=== PATIENT | male | born 1945 | race Caucasian/White ===

== ENCOUNTER 2018-09-14 03:27 | Emergency (ER) | payer MEDICARE, OTHER ==
[~2018-09-14] VITALS: Ht 188 cm; Wt 145.1 kg
[2018-09-14] MEDS ORDERED: KETOROLAC TROMETHAMINE 30 MG/ML VIAL IV STA (03:49)
[2018-09-14] MEDS ORDERED: KETOROLAC TROMETHAMINE 30 MG/ML VIAL ONE (03:53)
--- NOTE | 2018-09-14 04:46 | Diagnostic Imaging Report ---
EXAM: CT Abdomen and Pelvis WITHOUT contrast INDICATION: ^[id number] ^0401 COMPARISON: None. TECHNIQUE: Abdomen and pelvis were scanned utilizing a multidetector helical scanner from the lung base to the pubic symphysis without administration of IV contrast. Absence of intravenous contrast decreases sensitivity for detection of focal lesions and vascular pathology. Coronal and sagittal reformations were obtained. Routine protocol was performed. IV CONTRAST: None ORAL CONTRAST: Water COMPLICATIONS: None RADIATION DOSE: Total DLP: 878.97 mGy*cm Estimated effective dose: (DLP x 0.015 x size factor) mSv CTDIvol has been reviewed. It is below the limits set by the Radiation Protocol Committee (RPC). FINDINGS: LINES and TUBES: None. LOWER THORAX: Partially seen atherosclerotic calcification of coronary arteries. HEPATOBILIARY: Unenhanced liver is unremarkable. No biliary ductal dilation. GALLBLADDER: No radio-opaque stones or sludge. No wall thickening. SPLEEN: No splenomegaly. PANCREAS: No focal masses or ductal dilatation. ADRENALS: No adrenal nodules KIDNEYS/URETERS: No hydronephrosis. Limited for evaluation of renal parenchyma without intravenous contrast. Bilateral perinephric fat stranding, left slightly more than right. Left renal inferior pole 6 mm calculus. Exophytic left superior pole 4.1 cm cyst. Cluster of right renal midpole calculi, overall measuring 2.1 cm. From inner left ureterovesical junction calculus without left hydronephrosis. However, there is left periureteral fat stranding. GI TRACT: No abnormal distention, wall thickening, or evidence of bowel obstruction. There are diverticula within the colon without evidence of diverticulitis. Appendix is normal. PELVIC ORGANS/BLADDER: Unremarkable. LYMPH NODES: No lymphadenopathy. VESSELS: There is moderate atherosclerotic disease in the aorta and major arterial branches. Focally ectatic infrarenal abdominal aorta measuring approximately 2.8 cm. PERITONEUM / RETROPERITONEUM: No free air or fluid. BONES: Grade 1 retrolisthesis of L5 in relation to L4. SOFT TISSUES: Unremarkable. IMPRESSION: 1. Bilateral nonobstructive renal calculi. 2. 4 mm left ureterovesical junction calculus without left hydronephrosis. However, there is increased left perinephric and left periureteral fat stranding. Superimposed urinary tract infection cannot be excluded. Signed by: Dr. Fabian Bird MD on 09/14/2018 4:43 AM
[2018-09-14 05:08] VITALS: BP 144/73
== END 2018-09-14 05:15 | disposition home or self-care (01) ==
LOC: FSED 03:27
DX: N20.2 Calculus of kidney with calculus of ureter (principal); Z87.442 Personal history of urinary calculi; I10 Essential (primary) hypertension; E11.9 Type 2 diabetes mellitus without complications; Z90.49 Acquired absence of other specified parts of digestive tract
CPT/HCPCS: 74176; 80053; 80076; 81003; 85025; 99284; J1885

== ENCOUNTER → 2018-12-02 | Day surgery (SDC) | payer OTHER, MEDICARE ==
[2018-12-01 12:30] LABS: BASOPHILS # (AUTO) 0.1 (0.0-0.1); EOSINOPHILS # (AUTO) 0.4 (0.0-0.4); EOSINOPHILS % 5.2 % (0.0-6.0); HEMATOCRIT 40.4 % (38.2-49.6); HEMOGLOBIN 12.8 g/dL (14.0-18.0); LYMPHOCYTES # (AUTO) 1.9 (1.0-3.2); LYMPHOCYTES % 25.1 % (18.0-39.1); MEAN CORPUSCULAR HEMOGLOBIN 27.9 pg (28-32); MEAN CORPUSCULAR HGB CONC 31.7 g/dL (31-35); MEAN CORPUSCULAR VOLUME 88.2 fL (81-99); MONOCYTES # (AUTO) 0.8 (0.2-0.8); MONOCYTES % 10.1 % (4.4-11.3); NEUTROPHILS # (AUTO) 4.5 (2.1-6.9); NEUTROPHILS % 58.3 % (38.7-80.0); PLATELET COUNT 238 x10e3/uL (140-360); RED BLOOD COUNT 4.58 x10e6/uL (4.3-5.7); RED CELL DISTRIBUTION WIDTH 14.5 % (11.7-14.4)
[2018-12-01 13:02] LABS: ANION GAP 12.2 mmol/L (8-16); BLOOD UREA NITROGEN 14 mg/dL (7-26); BUN/CREATININE RATIO 13 (6-25); CALCIUM 10.2 mg/dL (8.4-10.2); CARBON DIOXIDE 29 mmol/L (22-29); CHLORIDE 97 mmol/L (98-107); CREATININE, SERUM 1.04 mg/dL (0.72-1.25); EST GLOMERULAR FILTRATION RATE > 60 ML/MIN (60-); GLUCOSE 195 mg/dL (74-118); POTASSIUM 4.2 mmol/L (3.5-5.1); SODIUM 134 mmol/L (136-145)
--- NOTE | 2018-12-01 13:16 | Diagnostic Imaging Report ---
Exam: PA and lateral chest radiograph Clinical history: Preoperative clearance Findings: There is no evidence of pulmonary consolidation, pleural effusion, or pneumothorax. The cardiac size is within normal limits. Bridging osteophytes are noted throughout the thoracic spine. Otherwise, the regional osseous structures are unremarkable. Impression: 1. No radiographic evidence of acute cardiorespiratory disease. Signed by: Dr. Gopi Mcdaniel MD on 12/01/2018 1:12 PM
--- NOTE | 2018-12-01 15:10 | Diagnostic Imaging Report ---
Exam: KUB Clinical history: Preoperative clearance Comparison: CT abdomen and pelvis, September 14, 2018 Findings: A 2.4 cm calcific density structures seen overlying the upper pole right kidney most compatible with nephrolithiasis. There appears relatively stable compared to the prior study. There is nonobstructive bowel gas pattern. The regional osseous structures are within normal limits. Impression: 1. Right nephrolithiasis. Signed by: Dr. Gopi Mcdaniel MD on 12/01/2018 3:07 PM
[~2018-12-02] MED LIST: ABILIFY5 MG PO; ALTACE5 MG PO; ASPIRIN325 MG PO; B&O 60MG R/S 60 MG SUPP PR ONE; CEFTRIAXONE SOD 1 GM/NS 50 ML 50 ML IV ONE; DEXAMETHASONE SOD PHOS INJ 4 MG/ML VIAL ONE; FENTANYL CITRATE/PF 100MCG/2 ML INJ ONE; GLIMEPIRIDE2 MG PO; IOPAMIDOL 610MG/1ML 300 MG/ML VIAL IV ONE; LIDOCAINE HCL 2% LOCAL INJ 5 ML SDV VIAL INJ ONE; LIPITOR20 MG PO; METFORMIN HCL500 MG PO; METOPROLOL SUCC50 MG PO; MIDAZOLAM HCL 2 MG/2 ML VIAL ONE; ONDANSETRON HCL INJ 2MG/ML 2ML 2 MG/ML VIAL ONE; OXYBUTYNIN CHLOR5 MG PO; PIOGLITAZONE HC45 MG PO; PLAVIX75 MG PO; PRISTIQ ER50 MG PO; PROPOFOL IV EMULSION 10 MG/ML 20 ML VIAL ONE; SEVOFLURANE INHAL SOLN 250 ML PEN BTL ONE; SULFAMETHOXAZO1 EAC1 PO; TRADJENTA5 MG PO; TYLENOL # 31 EA PO
--- OUTSIDE RECORDS SUMMARY | 2018-12-02 10:45 | XMS REPORT ---
Author Author [facility] Address Unknown Phone Unavailable Care Team Providers Care Advice Line Rn Name Role Phone CELESTINO QUINTANILLA Unavailable Unavailable Samy PAGE Unavailable Unavailable Payers Payer Name Policy Type Policy Number Effective Date Expiration Date Problems This patient has no known problems. Allergies, Adverse Reactions, Alerts Allergy Name Allergy Type Status Severity Reaction(s) Onset Date Inactive Date Treating Clinician Comments No Known Allergies DA Active U 2012 00:00:00 Medications This patient has no known medications. Results Test Description Test Time Test Comments Text Results Atomic Results Result Comments ABDOMEN-1VIEW (RICHYB) 2018-12-01 15:05:00 [place] [address] Patient Name: PRIYA GR MR #: [id number] : 1945 Age/Sex: 73/M Req #: [id number] Adm Physician: Ordered by: CELESTINO QUINTANILLA MD Report #: [id number] Location: OR Room/Bed: Procedure: [id number] DX/ABDOMEN-1VIEW (KUB) Exam Date: 12/01/18 Exam Time: 1200 REPORT STATUS: Signed Exam: KUB Clinical history: Preoperative clearance Comparison: CT abdomen and pelvis, September 14, 2018 Findings: A 2.4 cm calcific density structures seen overlying the upper pole right kidney most compatible with nephrolithiasis. There appears relatively stable compared to the prior study. There is nonobstructive bowel gas pattern. The regional osseous structures are within normal limits. Impression: 1. Right nephrolithiasis. Signed by: Dr. Gopi Mcdaniel MD on 12/01/2018 3:07 PM Dictated By: GIL MDCANIEL MD 1507 Transcribed By: MARY ELLEN on 12/01/18 1507 COPY TO: CELESTINO QUINTANILLA MD CHEST 2 VIEWS 2018-12-01 13:11:00 [place] [address] Patient Name: PRIYA GR MR #: [id number] : 1945 Age/Sex: 73/M Req #: [id number] Adm Physician: Ordered by: CELESTINO QUINTANILLA MD Report #: [id number] Location: OR Room/Bed: Procedure: [id number] DX/CHEST 2 VIEWS Exam Date: 12/01/18 Exam Time: 1200 REPORT STATUS: Signed Exam: PA and lateral chest radiograph Clinical history: Preoperative clearance Findings: There is no evidence of pulmonary consolidation, pleural effusion, or pneumothorax. The cardiac size is within normal limits. Bridging osteophytes are noted throughout the thoracic spine. Otherwise, the regional osseous structures are unremarkable. Impression: 1. No radiographic evidence of acute cardiorespiratory disease. Signed by: Dr. Gopi Mcdaniel MD on 12/01/2018 1:12 PM Dictated By: GIL MCDANIEL MD 11 Transcribed By: MARY ELLEN on 12/01/181311 COPY TO: CELESTINO QUINTANILLA MD CT ABD/PEL WO CONTRAST-HOPD 2018-09-14 04:34:00 [facility] [address] [place] [address] Patient Name: PRIYA GR MR #: [id number] : 1945 Age/Sex: 73/M Req #: [id number] Adm Physician: Ordered by: GIULIANA PAGE MD Report #: [id number] Location: [facility] Room/Bed: Procedure: HOPD/CT ABD/PEL WO CONTRAST-HOPD Exam Date: 09/14/18 Exam Time: 400 REPORT STATUS: Signed EXAM: CT Abdomen and Pelvis WITHOUT contrast INDICATION: [id number] COMPARISON: None. TECHNIQUE: Abdomen and pelvis were scanned utilizing a multidetector helical scanner from the lung base to the pubic symphysis without administration of IV contrast. Absence of intravenous contrast decreases sensitivity for detection of focal lesions and vascular pathology. Coronal and sagittal reformations were obtained. Routine protocol was performed. IV CONTRAST: None ORAL CONTRAST: Water COMPLICATIONS: None RADIATION DOSE: Total DLP: 878.97 mGy*cm Estimated effective dose: (DLP x 0.015 x size factor) mSv CTDIvol has been reviewed. It is below the limits set by the Radiation Protocol Committee (RPC). FINDINGS: LINES and TUBES: None. LOWER THORAX: Partially seen atherosclerotic calcification of coronary arteries. HEPATOBILIARY: Unenhanced liver is unremarkable. No biliary ductal dilation. GALLBLADDER: No radio-opaque stones or sludge. No wall thickening. SPLEEN: No splenomegaly. PANCREAS: No focal masses or ductal dilatation. ADRENALS: No adrenal nodules KIDNEYS/URETERS: No hydronephrosis. Limited for evaluation of renal parenchyma without intravenous contrast. Bilateral perinephric fat stranding, left slightly more than right. Left renal inferior pole 6 mm calculus. Exophytic left superior pole 4.1 cm cyst. Cluster of right renal midpole calculi, overall measuring 2.1 cm. From inner left ureterovesical junction calculus without left hydronephrosis. However, there is left periureteral fat stranding. GI TRACT: No abnormal distention, wall thickening, or evidence of bowel obstruction. There are diverticula within the colon without evidence of diverticulitis. Appendix is normal. PELVIC ORGANS/BLADDER: Unremarkable. LYMPH NODES: No lymphadenopathy. VESSELS: There is moderate atherosclerotic disease in the aorta and major arterial branches. Focally ect atic infrarenal abdominal aorta measuring approximately 2.8 cm. PERITONEUM / RETROPERITONEUM: No free air or fluid. BONES: Grade 1 retrolisthesis of L5 in relation to L4. SOFT TISSUES: Unremarkable. IMPRESSION: 1. Bilateral nonobstructive renal calculi. 2. 4 mm left ureterovesical junction calculus without left hydronephrosis. However, there is increased left perinephric and left periureteral fat stranding. Superimposed urinary tract infection cannot be excluded. Signed by: Dr. Fabian Greer MD on 09/14/2018 4:43 AM Dictated By: FABIAN GREER MD 2 Transcribed By: MARY ELLEN on 09/14/18442 COPY TO: GIULIANA PAGE MD
[2018-12-02 15:00] VITALS: BP 141/81
--- NOTE | 2019-01-10 07:56 | Operative Report ---
DATE OF PROCEDURE: 12/02/2018 SURGEON: Preston Goss MD PREOPERATIVE DIAGNOSES: 1. Bilateral nephrolithiasis. 2. Bilateral renal colic, potential. POSTOPERATIVE DIAGNOSES: 1. Bilateral nephrolithiasis. 2. Bilateral renal colic, potential. OPERATION PERFORMED: 1. Cystourethroscopy with bilateral ureteral catheterization and retrograde ureteropyelography. 2. Bilateral ureteroscopy on the left-hand side with stone manipulation on the right-hand side, left ureteroscopy with stone manipulation (separate procedure performed for the left-sided kidney stone). 3. Cystourethroscopy with insertion of left indwelling ureteral stent (separate procedure performed for the diagnosis of the renal colic). 4. Right ureteroscopy with holmium laser lithotripsy, stone manipulation, and insertion of stents (separate procedure performed for the right nephrolithiasis). 5. Urological Services for supervision and interpretation of ureteroscopy. 6. Interpretation of retrograde ureteropyelography. ANESTHESIA: General. COMPLICATIONS: None. CLINICAL SUMMARY: Chaz Kennedy is a 73-year-old man with bilateral nephrolithiasis. He is brought for management. He is aware of the risks of bleeding, infection, injury to adjacent structures, need for additional procedures, and elected to proceed. OPERATIVE PROCEDURE IN DETAIL: Informed consent was verified. Chaz Kennedy was properly identified, taken to the operating room, and placed on the cystoscopy table in supine position. Anesthesia was uneventfully begun. The patient was then carefully and gently repositioned in dorsal lithotomy position with all pressure points well padded. His genitalia were prepared and draped in usual sterile fashion. A 22.5-Faroese cystoscope sheath with the visual obturator in place was atraumatically inserted into the patient's urethra, was guided down the urethra, which was remarkable for wide caliber, not clinically significant nonobstructing ureteral strictures. We went through the patient's prostatic bed, which was significant for obstructive BPH and into the patient's bladder. Panendoscopy revealed no suspicious mucosal lesions, no tumors, no stones. Both ureteral orifices were cannulated and retrograde ureteropyelography was performed. A flexible ureteroscope was then brought up over the guidewire, which was placed in the left side and guided to the level of the patient's kidney. We attempted to find the small stone, there was small Chucky's plaques were present throughout the left kidney. The stone was extracted with Nitinol tipless basket. Re-examined the ureter, which was unremarkable. With cystoscopic and fluoroscopic guidance, a left-sided indwelling ureteral stent was then placed. It was coiled in the patient's kidney as well as the patient's bladder. The retaining suture was cut short. The right side was cannulated. We brought the ureteroscope up in and retrograde pyelograms performed by the ureteroscope up to the level of the patient's kidney, where there was a large stone identified. This stone underwent a holmium laser lithotripsy until it was all fragmented into smaller fragments. Then, with cystoscopic and fluoroscopic guidance, a right-sided indwelling ureteral stent was then placed. It was coiled in the patient's kidneys as well as the patient's bladder. The retaining suture was cut short. Interpretation of retrograde ureteropyelography contrast was instilled in retrograde fashion bilaterally. There were no tumors and no suspicious lesions. There was some fullness and no hematuria and hydronephrosis. There were multiple filling defects corresponding to the large stone on the left hand side. The stents were in good position, coiled the patient's kidneys as well as the patient's bladder at the end of the case. The patient's bladder was drained. Cystoscope was withdrawn. The patient was uneventfully reversed from anesthesia and taken to recovery room in stable condition. Explicit postop instructions were given. We will plan on returning to the operating room in about a month to remove his stent and hopefully render the patient stent free and stone free. Preston Goss MD [facility] /[id number] cc: Vin Marshall MD
== END | disposition home or self-care (01) ==
LOC: OR 10:43
PROVIDERS: ATTEND Urology
DX: N20.0 Calculus of kidney (principal); Z87.442 Personal history of urinary calculi; N20.1 Calculus of ureter; N28.1 Cyst of kidney, acquired; E66.9 Obesity, unspecified; R31.29 Other microscopic hematuria; R81 Glycosuria; N39.0 Urinary tract infection, site not specified; N50.0 Atrophy of testis; N52.9 Male erectile dysfunction, unspecified; N40.1 Benign prostatic hyperplasia with lower urinary tract symptoms; N13.8 Other obstructive and reflux uropathy; Z01.812 Encounter for preprocedural laboratory examination; Z01.811 Encounter for preprocedural respiratory examination; Z68.41 Body mass index [BMI] 40.0-44.9, adult
CPT/HCPCS: 36415 ×2; 52330; 52356; 71046; 74018; 74420; 80048; 82948; 83970; 84550; 85025; 88300; 93005; C1766; C2617; J0696; J1100; J2001; J2250; J2405; J2704; J3010; Q9967

== ENCOUNTER 2018-12-22 01:43 | Inpatient (IN) | payer OTHER, MEDICARE ==
[~2018-12-22] VITALS: Ht 188 cm; Wt 145.2 kg
[~2018-12-22 01:43] MED LIST changes: -B&O 60MG R/S 60 MG SUPP PR ONE; -CEFTRIAXONE SOD 1 GM/NS 50 ML 50 ML IV ONE; -DEXAMETHASONE SOD PHOS INJ 4 MG/ML VIAL ONE; -FENTANYL CITRATE/PF 100MCG/2 ML INJ ONE; -IOPAMIDOL 610MG/1ML 300 MG/ML VIAL IV ONE; -LIDOCAINE HCL 2% LOCAL INJ 5 ML SDV VIAL INJ ONE; -MIDAZOLAM HCL 2 MG/2 ML VIAL ONE; -ONDANSETRON HCL INJ 2MG/ML 2ML 2 MG/ML VIAL ONE; -OXYBUTYNIN CHLOR5 MG PO; -PIOGLITAZONE HC45 MG PO; -PROPOFOL IV EMULSION 10 MG/ML 20 ML VIAL ONE; -SEVOFLURANE INHAL SOLN 250 ML PEN BTL ONE; -SULFAMETHOXAZO1 EAC1 PO; -TYLENOL # 31 EA PO
[2018-12-22] MEDS ORDERED: CEFTRIAXONE SOD 1 GM/NS 50 ML 50 ML IV ONE (01:45)
[2018-12-22] MEDS ORDERED: ACETAMINOPHEN 325 MG TAB PO ONE (01:45)
[2018-12-22] MEDS ORDERED: SODIUM CHLORIDE 0.9% 1000ML 1,000 ML IV ONE ×2 (01:45→02:00)
[2018-12-22] MEDS ORDERED: PIPER-TAZ 3.375 GM 50 ML IV STA (01:48)
[2018-12-22] MEDS ORDERED: CEFTRIAXONE SOD 1 GM/NS 50 ML 0 ML IV ONE (01:52)
[2018-12-22] MEDS ORDERED: ACETAMINOPHEN 1000 MG/100 ML 100 ML IV ONE ×2 (01:53→18:29)
[2018-12-22] MEDS ORDERED: SODIUM CHLORIDE 0.9% 1000ML 1,000 ML ONE ×2 (01:53→01:55)
[2018-12-22 01:57] LABS: BASOPHILS # (AUTO) 0.1 (0.0-0.1); BASOPHILS % 0.7 % (0.0-1.0); EOSINOPHILS % 0.3 % (0.0-6.0); HEMATOCRIT 37.2 % (38.2-49.6); HEMOGLOBIN 12.5 g/dL (14.0-18.0); LYMPHOCYTES % 8.5 % (18.0-39.1); MEAN CORPUSCULAR HEMOGLOBIN 28.8 pg (28-32); MEAN CORPUSCULAR HGB CONC 33.6 g/dL (31-35); MEAN CORPUSCULAR VOLUME 85.7 fL (81-99); MONOCYTES % 8.1 % (4.4-11.3); NEUTROPHILS # (AUTO) 9.8 (2.1-6.9); NEUTROPHILS % 81.9 % (38.7-80.0); PLATELET COUNT 251 x10e3/uL (140-360); RED BLOOD COUNT 4.34 x10e6/uL (4.3-5.7); RED CELL DISTRIBUTION WIDTH 14.5 % (11.7-14.4)
[2018-12-22] MEDS ORDERED: ACETAMINOPHEN 1000 MG/100 ML IV STA (02:04)
[2018-12-22 02:11] LABS: BILIRUBIN,URINE SMALL (NEGATIVE); CLARITY,URINE CLOUDY (CLEAR); COLOR,URINE ORANGE (YELLOW); KETONES,URINE TRACE (NEGATIVE); LEUKOCYTE ESTERASE ,URINE TRACE (NEGATIVE); NITRITE,URINE POSITIVE (NEGATIVE)
[2018-12-22 02:13] LABS: PROTEIN,URINE DIPSTICK 3+ (NEGATIVE); RBC,URINE >50 /HPF (0-5)
[2018-12-22 02:14] LABS: AMORPHOUS SEDIMENT,URINE MODERATE (FEW); BACTERIA,URINE MANY /HPF; EPITHELIAL CELLS,URINE FEW /LPF; WBC,URINE (MAN) 21-50 /HPF (0-5)
[2018-12-22 02:19] LABS: ALBUMIN 3.3 g/dL (3.5-5.0); ALBUMIN/GLOBULIN RATIO 0.9 (0.8-2.0); ANION GAP 18.2 mmol/L (8-16); CALCIUM 9.1 mg/dL (8.4-10.2); CREATININE, SERUM 1.61 mg/dL (0.72-1.25); POTASSIUM 4.2 mmol/L (3.5-5.1)
--- NOTE | 2018-12-22 03:17 | Diagnostic Imaging Report ---
EXAMINATION: CHEST SINGLE (PORTABLE) INDICATION: Sepsis COMPARISON: None FINDINGS: AP view TUBES and LINES: None. LUNGS: Lungs are well inflated. Lungs are clear. There is no evidence of pneumonia or pulmonary edema. Central pulmonary vascular prominence. PLEURA: No pleural effusion or pneumothorax. HEART AND MEDIASTINUM: The cardiomediastinal silhouette is unremarkable. BONES AND SOFT TISSUES: No acute osseous lesion. Soft tissues are unremarkable. UPPER ABDOMEN: No free air under the diaphragm. IMPRESSION: Central pulmonary vascular congestion. Signed by: Faustino He DO on 12/22/2018 3:13 AM
[2018-12-22] MEDS ORDERED: ONDANSETRON HCL INJ 2MG/ML 2ML 2 MG/ML VIAL IV PRN (03:30)
[2018-12-22] MEDS ORDERED: DEXTROSE 50% SYRINGE 50 ML IV PRN (03:30)
[2018-12-22] MEDS ORDERED: TYLENOL # 31 EA PO (03:36)
[2018-12-22] MEDS ORDERED: PIOGLITAZONE HC45 MG PO (03:40)
[2018-12-22] MEDS ORDERED: SULFAMETHOXAZO1 EAC1 PO (03:40)
[2018-12-22] MEDS ORDERED: OXYBUTYNIN CHLOR5 MG PO (03:40)
[2018-12-22] MEDS: SODIUM CHLORIDE 0.9% 1000ML 1,000 ML IV SCH ×3 (04:10→12:32)
--- NOTE | 2018-12-22 06:48 | NUR ---
received report from off going nurse. patient in room in bed, awake and alert. no s/s of acute distress. resp even and nonlabored. pending room assignment for admission. bed down call light in reach, will continue to monitor.
[2018-12-22] MEDS: INSULIN REGULAR, HUMAN 100 UNIT/1 ML 3ML VIAL SQ SCH ×4 (08:00→22:26)
[2018-12-22] MEDS: PIPER-TAZ 3.375 GM 50 ML IV SCH ×2 (10:13→22:41)
--- NOTE | 2018-12-22 12:05 | History and Physical ---
REASON FOR ADMISSION: Sepsis secondary to urinary tract infection. HISTORY OF PRESENT ILLNESS: The patient is a 73-year-old gentleman, well known to me with a history of diabetes, chronic kidney disease stage 3, sleep apnea, and hypertension, who had a urological procedure the morning of admission. He then postprocedure, started to have fevers and chills and he came to the emergency so he has been admitted for further evaluation and treatment. PAST MEDICAL HISTORY: Significant for diabetes, hypertension, chronic kidney disease stage 3, and obstructive sleep apnea. MEDICATIONS: See MAR. ALLERGIES: NONE. SOCIAL HISTORY: Lives at home with his . Nonsmoker. Nondrinker. FAMILY HISTORY: Hypertension. PHYSICAL EXAMINATION: VITAL SIGNS: Temperature 100.1, blood pressure 102/76, pulse 96, and saturations 97% on BiPAP. GENERAL: He is in no apparent distress, lying in bed. NECK: Supple. No JVD. CARDIOVASCULAR: Regular rate and rhythm. LUNGS: Clear to auscultation bilaterally. ABDOMEN: Good bowel sounds. Soft and nontender. EXTREMITIES: No clubbing or cyanosis. NEUROLOGIC: Nonfocal. ASSESSMENT AND PLAN: 1. Sepsis secondary to urinary tract infection. Continue with antibiotics. Check the cultures and consult Dr. Goss, his urologist. 2. Diabetes. Continue current care monitoring. 3. Hypertension. Continue with current care monitoring. 4. Leukocytosis. Continue to monitor. 5. Chronic kidney disease, stage 3. Continue to monitor. 6. Obstructive sleep apnea. Continue with his BiPAP. 7. Obesity. The patient diet better. Please see hospital chart for full details. MD NISREEN Woodruff/SHELL /[id number]
[2018-12-22] MEDS: METFORMIN HCL 500 MG TAB PO SCH (16:27)
[2018-12-22] MEDS ORDERED: ACETAMINOPHEN 1000 MG/100 ML IV ONE (18:45)
--- NOTE | 2018-12-22 18:45 | NUR ---
PATIENT CHANGE IN MENTAL STATUS, TEMP 102.4. ER MD MADE AWARE AND ORDERS FOR IVPB TYLNEOL RECEIVED AND ADMIN. DR. TAM AND DR. Maximiliano MCKEON PAGED. RECEIVED CALL BACK WITH ORDERS RECEIVED AND PLACED INTO CHART.
--- NOTE | 2018-12-22 20:45 | Diagnostic Imaging Report ---
EXAMINATION: CHEST 2 VIEWS INDICATION: ^FEVER ^Y COMPARISON: Chest radiograph 12/22/2018 FINDINGS: PA and lateral views TUBES and LINES: None. LUNGS: Lungs are well inflated. Unchanged central pulmonary vascular congestion. No new consolidations. PLEURA: No pleural effusion or pneumothorax. HEART AND MEDIASTINUM: The cardiomediastinal silhouette is unremarkable. BONES AND SOFT TISSUES: No acute osseous lesion. Soft tissues are unremarkable. UPPER ABDOMEN: No free air under the diaphragm. IMPRESSION: No new consolidations. Signed by: Dr. Susanne Jain M.D. on 12/22/2018 8:41 PM
--- NOTE | 2018-12-22 20:58 | NUR ---
SALINE LOCK RFA INFILTRATED. DC'D RESTARTED 20G L HAND
--- NOTE | 2018-12-22 22:28 | NUR ---
FSBS 210, PT REFUSED INSULIN, STATES HE DOES NOT TAKE
--- NOTE | 2018-12-22 22:28 | NUR ---
PT AWAKE ALERT SKIN W/D RESP NONLAB, PT HAS HOME CPAP ON AT THIS TIME. DENIES ANY COMPLAINTS AT THIS TIME.
[2018-12-22] MEDS: ATORVASTATIN 40 MG TAB PO SCH (22:32)
[2018-12-22 22:45] VITALS: BP 140/62
--- NOTE | 2018-12-22 23:00 | NUR ---
RECEIVED PATIENT FROM ER AOX3, NO SIGNS OF RESPIRATORY DISTRESS NOTED. CPAP MACHINE IN PLACE AND PATIENT IS RESTING WITH BOTH EYES CLOSED. BED IS LOCKED IN LOWEST POSITION, BOTH SIDE RAILS ARE UP, CALL LIGHT WITHIN EASY REACH, WILL CONTINUE TO MONITOR.
[2018-12-22 23:25] VITALS: BP 140/62
[2018-12-22 23:30] VITALS: BP 140/62
--- NOTE | 2018-12-22 23:45 | NUR ---
PATIENT'S HAS COME TO BEDSIDE. IV TYLENOL HAS BEEN STARTED AT ORDERED RATE. WILL CONTINUE TO MONITOR.
[2018-12-22] MEDS: ACETAMINOPHEN 1000 MG/100 ML IV SCH (23:49)
[2018-12-23] MEDS: SODIUM CHLORIDE 0.9% 1000ML 1,000 ML IV SCH ×2 (01:03→18:18)
[2018-12-23 04:00] VITALS: BP 147/76
[2018-12-23] MEDS: PIPER-TAZ 3.375 GM 50 ML IV SCH ×3 (05:30→22:00)
[2018-12-23 06:07] LABS: BASOPHILS # (AUTO) 0.1 (0.0-0.1); BASOPHILS % 0.8 % (0.0-1.0); EOSINOPHILS # (AUTO) 0.2 (0.0-0.4); EOSINOPHILS % 1.5 % (0.0-6.0); HEMATOCRIT 34.3 % (38.2-49.6); HEMOGLOBIN 11.2 g/dL (14.0-18.0); LYMPHOCYTES # (AUTO) 1.3 (1.0-3.2); LYMPHOCYTES % 12.6 % (18.0-39.1); MEAN CORPUSCULAR HEMOGLOBIN 28.2 pg (28-32); MEAN CORPUSCULAR HGB CONC 32.7 g/dL (31-35); MEAN CORPUSCULAR VOLUME 86.4 fL (81-99); MONOCYTES # (AUTO) 1.1 (0.2-0.8); NEUTROPHILS # (AUTO) 7.4 (2.1-6.9); NEUTROPHILS % 73.3 % (38.7-80.0); PLATELET COUNT 200 x10e3/uL (140-360); RED BLOOD COUNT 3.97 x10e6/uL (4.3-5.7); RED CELL DISTRIBUTION WIDTH 14.8 % (11.7-14.4)
[2018-12-23] MEDS: ACETAMINOPHEN 1000 MG/100 ML IV SCH ×3 (06:14→18:00)
[2018-12-23 07:08] LABS: ALBUMIN 2.9 g/dL (3.5-5.0); ALBUMIN/GLOBULIN RATIO 0.9 (0.8-2.0); ANION GAP 15.7 mmol/L (8-16); CREATININE, SERUM 1.21 mg/dL (0.72-1.25); POTASSIUM 3.7 mmol/L (3.5-5.1)
[2018-12-23] MEDS: INSULIN REGULAR, HUMAN 100 UNIT/1 ML 3ML VIAL SQ SCH ×4 (07:30→20:35)
--- NOTE | 2018-12-23 07:30 | NUR ---
PT IN BED RESTING ,CPAP IN PLACE,DENIES PAIN,AFEBRILE
[2018-12-23 08:00] VITALS: BP 119/61
[2018-12-23] MEDS: METFORMIN HCL 500 MG TAB PO SCH ×2 (08:00→17:00)
[2018-12-23 08:55] VITALS: BP 119/61
[2018-12-23] MEDS ORDERED: NON-FORMULARY MEDICATION (Aripiprazole (Abilify) 5 MG) PO SCH (09:00)
[2018-12-23] MEDS: GLIMEPIRIDE 2 MG TAB PO SCH (09:00)
[2018-12-23] MEDS: DESVENLAFAXINE SUCCINATE 50 MG TAB.SR.24H PO SCH (09:00)
[2018-12-23] MEDS: ARIPIPRAZOLE 5 MG TABLET PO SCH (09:00)
[2018-12-23] MEDS: PIOGLITAZONE HCL 45 MG TAB PO SCH (09:00)
[2018-12-23] MEDS: NON-FORMULARY MEDICATION (Linagliptin (Tradjenta) 5 MG) PO SCH (09:00)
[2018-12-23] MEDS: METOPROLOL SUCCINATE 50 MG TAB XL PO SCH (09:00)
[2018-12-23] MEDS: CLOPIDOGREL BISULFATE 75 MG TAB PO SCH (09:00)
[2018-12-23] MEDS ORDERED: ATORVASTATIN 20 MG TAB PO SCH (09:00)
[2018-12-23] MEDS: RAMIPRIL 5 MG CAP PO SCH (09:00)
[2018-12-23 12:00] VITALS: BP 150/81
[2018-12-23 16:00] VITALS: BP 119/80
[2018-12-23] MEDS ORDERED: MAGNESIUM/ALUMINUM/SIMETHICONE 30 ML UDC PO PRN (17:30)
--- NOTE | 2018-12-23 18:41 | NUR ---
PT IN BED RESTING CPAP IN PLACE,DENIES PAIN
--- NOTE | 2018-12-23 18:49 | NUR ---
PT C/O ACID REFLUX MEDICATED
--- NOTE | 2018-12-23 19:10 | NUR ---
Patient visited in room during nursing rounds. Patient alert and oriented x3. No distress or discomfort noted. Pt wearing CPAP mask (nasal) from home at this time. Pt having off and on fever per report. On scheduled IV tylenol and IV antibiotics. Up with assist prn. Call diamond within reach. Will monitor closely.
--- NOTE | 2018-12-23 19:15 | NUR ---
Dr. Preston Goss came and visited patient. aware of patient condition.
[2018-12-23 20:11] VITALS: BP 128/98
[2018-12-23] MEDS: ACETAMINOPHEN 325 MG TAB PO PRN (20:35)
[2018-12-23] MEDS: ATORVASTATIN 40 MG TAB PO SCH (20:35)
[2018-12-24] VITALS (7 sets, daily range): BP systolic 108–138; BP diastolic 68–96
[2018-12-24] MEDS: ACETAMINOPHEN 1000 MG/100 ML IV SCH (00:40)
[2018-12-24] MEDS: SODIUM CHLORIDE 0.9% 1000ML 1,000 ML IV SCH ×2 (02:48→04:30)
[2018-12-24] MEDS: PANTOPRAZOLE SOD 40 MG TABEC PO SCH (06:21)
[2018-12-24] MEDS: PIPER-TAZ 3.375 GM 50 ML IV SCH ×2 (06:21→13:50)
--- NOTE | 2018-12-24 07:30 | NUR ---
PT IN BED SLEEPING,CPAP IN PLACE NO DISTRESS NOTED
[2018-12-24] MEDS: INSULIN REGULAR, HUMAN 100 UNIT/1 ML 3ML VIAL SQ SCH ×4 (08:30→21:55)
[2018-12-24] MEDS: PIOGLITAZONE HCL 45 MG TAB PO SCH (08:32)
[2018-12-24] MEDS: ARIPIPRAZOLE 5 MG TABLET PO SCH (08:32)
[2018-12-24] MEDS: METFORMIN HCL 500 MG TAB PO SCH ×2 (08:32→16:49)
[2018-12-24] MEDS: GLIMEPIRIDE 2 MG TAB PO SCH (08:34)
[2018-12-24] MEDS: CLOPIDOGREL BISULFATE 75 MG TAB PO SCH (08:34)
[2018-12-24] MEDS: DESVENLAFAXINE SUCCINATE 50 MG TAB.SR.24H PO SCH (08:34)
[2018-12-24] MEDS: RAMIPRIL 5 MG CAP PO SCH (08:34)
[2018-12-24] MEDS: METOPROLOL SUCCINATE 50 MG TAB XL PO SCH (08:35)
[2018-12-24] MEDS: NON-FORMULARY MEDICATION (Linagliptin (Tradjenta) 5 MG) PO SCH (09:00)
--- NOTE | 2018-12-24 16:00 | NUR ---
DR DENIS HERE ORDERS WRITTEN.
[2018-12-24] MEDS: CEFTRIAXONE SOD 1 GM/NS 50 ML 50 ML IV SCH (16:57)
[2018-12-24] MEDS ORDERED: FLUCONAZOLE 200 MG/100 ML 100 ML IV SCH (17:30)
--- NOTE | 2018-12-24 17:32 | NUR ---
PT UP N SIDE OF BED ,DENIES PAIN,AFEBRILE.
[2018-12-24] MEDS: ACETAMINOPHEN 325 MG TAB PO PRN (18:12)
--- NOTE | 2018-12-24 18:12 | NUR ---
PT C/O HEADACHE MEDICATED
--- NOTE | 2018-12-24 19:10 | NUR ---
Patient visited in room during nursing rounds. Patient alert and oriented x3. No distress or discomfort noted. Pt wearing CPAP mask (nasal) from home at this time. On scheduled IVF and IV antibiotics. Up with assist prn. Call diamond within reach. Will monitor closely.
--- NOTE | 2018-12-24 19:15 | Progress Note ---
DATE: SUBJECTIVE: Mr. Kennedy is doing better today. There is no new complaint. REVIEW OF SYSTEMS: HEENT: Negative. PULMONARY: Negative. CARDIAC: Negative. LABORATORY DATA: Reviewed. His cultures are showing yeast. His white count is 10.05. Sodium 136, potassium 3.7, glucose 174. PHYSICAL EXAMINATION: GENERAL: He is currently alert, oriented, does not seem to be in acute distress. VITAL SIGNS: Stable, currently afebrile. HEENT: He is not icteric. NECK: Supple. CHEST: Clear. HEART: S1, S2. No S3, S4, no murmur. ABDOMEN: Soft. Bowel sounds present. EXTREMITIES: No edema. SKIN: No rash. IMPRESSION: Urinary tract infection seems to be better. He is growing yeast. We will discontinue Zosyn, put him on Rocephin 1 g a day, Diflucan 200 mg daily, can switch to oral. Clinically better. Other medical problem as above. MD MEY Allen/SHELL /[id number]
[2018-12-24] MEDS: ATORVASTATIN 40 MG TAB PO SCH (21:55)
[2018-12-25] VITALS (8 sets, daily range): BP systolic 115–142; BP diastolic 76–101
--- NOTE | 2018-12-25 00:06 | Consultation ---
DATE OF CONSULTATION: 12/23/2018 REASON FOR CONSULTATION: UTI. HISTORY OF PRESENT ILLNESS: This patient, who is a 73-year-old gentleman with history of chronic kidney disease, history of sleep apnea, obesity, hypertension, had a stent procedure, started to have fever and chills, came to the emergency room where he was admitted, started on antibiotic. I was asked to see him. The patient is currently lying in bed comfortably. PAST MEDICAL HISTORY: Diabetes mellitus, hypertension, chronic kidney disease, obstructive sleep apnea. PAST SURGICAL HISTORY: As above. ALLERGIES: NKA. SOCIAL HISTORY: There is no smoking, drug abuse, or alcohol abuse. FAMILY HISTORY: Unremarkable. REVIEW OF SYSTEMS: HEENT: Negative. PULMONARY: Negative. CARDIAC: Negative. : Negative. SKIN: There is no rash. LABORATORY DATA: Reviewed. MEDICATION LIST: He is on insulin, Altace, Abilify, and Tylenol. PHYSICAL EXAMINATION: GENERAL: He is currently alert, oriented, does not seem to be in acute distress. VITAL SIGNS: Stable, currently afebrile. HEENT: He is not icteric. NECK: Supple. CHEST: Clear. HEART: S1, S2. No S3, S4, or murmur. ABDOMEN: Soft. Bowel sounds present. No tenderness. EXTREMITIES: No edema. VITAL SIGNS: When he first came, he was having fever of 100.1. IMPRESSION: 1. Sepsis on admission, secondary to urinary tract infection; pyelonephritis. Agree with Zosyn. Agree with blood cultures. Recheck CBC. Recheck Chem panel. 2. Diabetes mellitus. 3. Hypertension. 4. Leukocytosis. 5. Chronic kidney disease. 6. Sleep apnea. Discussed with the Medicine team. Discussed with the patient at length. The patient was seen on December 23. MD MEY Allen/SHELL /[id number]
[2018-12-25] MEDS: PANTOPRAZOLE SOD 40 MG TABEC PO SCH (06:20)
--- NOTE | 2018-12-25 07:30 | NUR ---
PT UP IN BED NO DISTRESS NTOEDDENIES PAIN .DR TAM HERE.
[2018-12-25] MEDS: METFORMIN HCL 500 MG TAB PO SCH ×2 (08:23→17:00)
[2018-12-25] MEDS: INSULIN REGULAR, HUMAN 100 UNIT/1 ML 3ML VIAL SQ SCH ×4 (08:24→20:15)
[2018-12-25] MEDS: NON-FORMULARY MEDICATION (Linagliptin (Tradjenta) 5 MG) PO SCH (09:00)
[2018-12-25] MEDS: PIOGLITAZONE HCL 45 MG TAB PO SCH (09:00)
[2018-12-25] MEDS: ARIPIPRAZOLE 5 MG TABLET PO SCH (09:00)
[2018-12-25] MEDS ORDERED: FLUCONAZOLE 100 MG TAB PO SCH (09:00)
[2018-12-25] MEDS: RAMIPRIL 5 MG CAP PO SCH (09:00)
[2018-12-25] MEDS: GLIMEPIRIDE 2 MG TAB PO SCH (09:00)
[2018-12-25] MEDS: METOPROLOL SUCCINATE 50 MG TAB XL PO SCH (09:00)
[2018-12-25] MEDS: CLOPIDOGREL BISULFATE 75 MG TAB PO SCH (09:00)
[2018-12-25] MEDS: DESVENLAFAXINE SUCCINATE 50 MG TAB.SR.24H PO SCH (09:00)
[2018-12-25] MEDS: CEFTRIAXONE SOD 1 GM/NS 50 ML 50 ML IV SCH (16:43)
[2018-12-25] MEDS ORDERED: FLUCONAZOLE 200 MG/100 ML 100 ML IV SCH (17:30)
--- NOTE | 2018-12-25 17:43 | Progress Note ---
DATE: SUBJECTIVE: Mr. Kennedy is doing better. No new complaints. REVIEW OF SYSTEMS: HEENT: Negative. PULMONARY: Negative. CARDIAC: Negative. PHYSICAL EXAMINATION: GENERAL: He is currently alert, oriented, does not seem to be in acute distress. VITAL SIGNS: Stable, currently afebrile. HEENT: He is not icteric. NECK: Supple. CHEST: Clear. HEART: S1, S2. No S3, S4, no murmur. ABDOMEN: Soft. Bowel sounds present. No tenderness. EXTREMITIES: Edema. IMPRESSION: 1. Urinary tract infection, seems to be getting better. 2. Funguria, seem to be bit stable. The patient will be discharged home on Keflex 500 mg p.o. t.i.d. for 14 days, Diflucan 200 mg p.o. t.i.d. for 14 days. Follow up with outpatient to recheck urine. Discussed with the patient. Discussed with medical team. MD MEY Allen/SHELL /[id number]
--- NOTE | 2018-12-25 19:10 | NUR ---
Patient visited in room during nursing rounds. Patient alert and oriented x3. No distress or discomfort noted. Pt wearing CPAP mask (nasal) from home at this time. On scheduled yeast medication (Diflucan). Up with standby assist prn. at bedside visiting. Call diamond within reach. Will monitor closely.
[2018-12-25] MEDS: ATORVASTATIN 40 MG TAB PO SCH (20:20)
--- NOTE | 2018-12-26 04:06 | Progress Note ---
DATE: 12/24/2018 SUBJECTIVE: Mr. Kennedy is doing well. There is no complaint. REVIEW OF SYSTEMS: HEENT: Negative. PULMONARY: Negative. CARDIAC: Negative. DICTATION ENDS HERE MD MEY Allen/SHELL /[id number]
--- NOTE | 2018-12-26 04:06 | Consultation ---
DATE OF CONSULTATION: 12/23/2018 Mr. Kennedy is a very pleasant 73-year-old male, who has history of renal stone, history of sleep apnea, history of obesity, had lithotripsy done a few days later, then had fever and chills, came to the emergency room. The patient does have history of chronic kidney disease stage 3. He also have diabetes, hypertension, and sleep apnea. PAST SURGICAL HISTORY: Lithotripsy. Knee replacement. PAST MEDICAL HISTORY: As above. ALLERGIES: NKA. SOCIAL HISTORY: There is no smoking, drug abuse, drug abuse. REVIEW OF SYSTEMS: Negative. PHYSICAL EXAMINATION: GENERAL: At present time, he is lying in bed comfortably. HEENT: There is no headache, visual changes, hearing changes. GI: There is no nausea, no vomiting, no diarrhea. CARDIAC: There is no arrhythmia. NEURO: No seizure activity. SKIN: There is no other rash. LABORATORY DATA: Reviewed, blood cultures pending. Urine culture is pending. White count is 11.9. Sodium 136, potassium 3.7, creatinine 1.2. MEDICATIONS: The patient is currently on Abilify, Altace, Actos, Amaryl, Pristiq, Plavix, Glucophage. He was started on Zosyn. IMPRESSION AND PLAN: Fever and chills after lithotripsy, very concerning for pyelonephritis and urinary tract infection. Agree with blood cultures, urine cultures, agree with Zosyn for now. We will modify after the availability of cultures and sensitivity. Other medical problems, as mentioned above, all seem to be stable. To continue his home medication. Discussed with the patient at length. MD MEY Allen/SHELL /[id number]
[2018-12-26 04:30] VITALS: BP 148/101
--- NOTE | 2018-12-26 05:40 | NUR ---
Dr. Marshall came and visited pt. informed patient he will be discharged this morning. MD to enter D/C orders. Prescriptions in chart.
[2018-12-26] MEDS: PANTOPRAZOLE SOD 40 MG TABEC PO SCH (06:12)
[2018-12-26 08:00] VITALS: BP 134/86
[2018-12-26] MEDS: RAMIPRIL 5 MG CAP PO SCH (08:15)
[2018-12-26] MEDS: PIOGLITAZONE HCL 45 MG TAB PO SCH (08:15)
[2018-12-26] MEDS: CLOPIDOGREL BISULFATE 75 MG TAB PO SCH (08:15)
[2018-12-26] MEDS: NON-FORMULARY MEDICATION (Linagliptin (Tradjenta) 5 MG) PO SCH (08:15)
[2018-12-26] MEDS: METOPROLOL SUCCINATE 50 MG TAB XL PO SCH (08:15)
[2018-12-26] MEDS: GLIMEPIRIDE 2 MG TAB PO SCH (08:15)
[2018-12-26] MEDS: ARIPIPRAZOLE 5 MG TABLET PO SCH (08:15)
[2018-12-26] MEDS: DESVENLAFAXINE SUCCINATE 50 MG TAB.SR.24H PO SCH (08:15)
[2018-12-26] MEDS: METFORMIN HCL 500 MG TAB PO SCH (08:15)
[2018-12-26] MEDS: INSULIN REGULAR, HUMAN 100 UNIT/1 ML 3ML VIAL SQ SCH (08:23)
[2018-12-26 08:25] VITALS: BP 134/86
[2018-12-26] MEDS ORDERED: ONDANSETRON HCL 4 MG ORAL DISINTEGRATING TAB PO PRN (09:15)
--- NOTE | 2019-01-01 16:00 | Discharge Summary ---
DISCHARGE DIAGNOSES: Sepsis secondary to urinary tract infection. HISTORY OF PRESENT ILLNESS/HOSPITAL COURSE: See hospital chart for full details. The patient is a gentleman, who is status post intervention urologically, where he presented later that night with increased fevers, chills, rigors, and leukocytosis, where he was noticed to have sepsis secondary to urinary tract infection. He was placed on IV antibiotics, seen by Infectious Disease as well as Urology inpatiently. Subsequently, daily improvements. At the time of discharge, he was having no further symptoms. He was able to ambulate well, was eating well, so he is able to be switched over to p.o. antibiotics and follow up with me in 1 to 2 weeks. Please see hospital chart for full details. MD NISREEN Woodruff/SHELL /[id number]
== END 2018-12-26 10:04 | disposition home or self-care (01) | DRG 872 ==
LOC: ER 01:43 → ERHOLD 03:27 → MED/SURG3 22:45
PROVIDERS: ADMIT Internal Medicine; ATTEND Internal Medicine
DX: A41.9 Sepsis, unspecified organism (principal); N39.0 Urinary tract infection, site not specified; Z68.41 Body mass index [BMI] 40.0-44.9, adult; N12 Tubulo-interstitial nephritis, not specified as acute or chronic; E11.9 Type 2 diabetes mellitus without complications; I10 Essential (primary) hypertension; N18.3 Chronic kidney disease, stage 3 (moderate); G47.33 Obstructive sleep apnea (adult) (pediatric)
CPT/HCPCS: 36415; 71045; 71046; 80053; 81001; 82948; 83605; 83735; 85025; 87040; 87086; 93005; 96365; 99284; J0696; J1450; J1817; J2543; J7030

== ENCOUNTER → 2020-03-13 | Outpatient (CLI) | payer OTHER, MEDICARE ==
[~2020-03-13] MED LIST changes: +IOPAMIDOL 370 MG/ML 200 ML INFUS..BTL INJ ONE; +OXYBUTYNIN CHLOR5 MG PO; +PIOGLITAZONE HC45 MG PO; +SODIUM CHLORIDE 0.9% 250ML 250 ML ONE; +SULFAMETHOXAZO1 EAC1 PO; +TYLENOL # 31 EA PO; +TYLENOL WITH C1 EACH PO; +XARELTO20 MG PO
[2020-03-13 13:01] LABS: BUN/CREATININE RATIO 17 (6-25); EST GLOMERULAR FILTRATION RATE > 60 ML/MIN (60-)
[2020-03-13 13:04] LABS: BLOOD UREA NITROGEN 12 mg/dL (7-26)
--- NOTE | 2020-03-13 16:49 | Diagnostic Imaging Report ---
EXAM: CT Abdomen and Pelvis WITHOUT and WITH intravenous contrast - Hematuria protocol INDICATION: Gross hematuria COMPARISON: CT abdomen pelvis of 09/14/2018, KUB 12/21/2018 TECHNIQUE: Abdomen and pelvis were scanned utilizing a multidetector helical scanner from the lung base to the pubic symphysis before and after administration of IV contrast. Coronal and sagittal reformations were obtained. Hematuria protocol was used. Scan was performed prior to contrast administration and during portal venous phase. IV CONTRAST: 100 mL of Isovue 370 ORAL CONTRAST: Water COMPLICATIONS: None RADIATION DOSE: Total DLP: 1981 mGy*cm Dose modulation, iterative reconstruction, and/or weight based adjustment of the mA/kV was utilized to reduce the radiation dose to as low as reasonably achievable. FINDINGS: LOWER THORAX: Mild dependent lingular and right middle lobe subsegmental atelectasis. Mild coronary artery atherosclerotic calcifications. HEPATOBILIARY: No focal liver lesion. No biliary ductal dilation. Unremarkable gallbladder. SPLEEN: No splenomegaly. PANCREAS: No focal masses or ductal dilatation. ADRENALS: No adrenal nodules. KIDNEYS/URETERS: No hydronephrosis or hydroureter. No renal calculi. No solid renal mass lesion. Left upper pole exophytic 4.6 cm simple renal cyst. Delayed phase images demonstrate opacification of the aorta of both ureters without filling defect to suggest urothelial mass lesion. PELVIC ORGANS/BLADDER: No mass or calculi. No wall thickening. Nonenlarged prostate (volume estimate 14cc). PERITONEUM / RETROPERITONEUM: No free air or fluid. LYMPH NODES: No lymphadenopathy. VESSELS: Moderate atherosclerotic calcifications of the nonaneurysmal abdominal aorta and major branches. GI TRACT: No abnormal bowel thickening. No bowel obstruction. Normal appendix. BONES AND SOFT TISSUES: No acute osseous injury. No suspicious lytic or blastic lesions. Minimal anterolisthesis at L4-5. IMPRESSION: No CT findings in the abdomen or pelvis to explain patient's hematuria. Left upper pole exophytic 4.6 cm simple renal cyst. Signed by: Phillip Kowalski MD on 03/13/2020 4:45 PM
== END ==
LOC: CT 09:16
PROVIDERS: ATTEND Urology
DX: R31.0 Gross hematuria (principal)
CPT/HCPCS: 36415; 74178; 82565; 84520; J7050; Q9967

== ENCOUNTER → 2020-07-05 | Day surgery (SDC) | payer MEDICARE, OTHER ==
[2020-07-02 14:37] LABS: BASOPHILS # (AUTO) 0.1 (0.0-0.1); EOSINOPHILS # (AUTO) 0.5 (0.0-0.4); EOSINOPHILS % 4.5 % (0.0-6.0); HEMATOCRIT 44.9 % (38.2-49.6); HEMOGLOBIN 14.4 g/dL (14.0-18.0); LYMPHOCYTES # (AUTO) 2.1 (1.0-3.2); LYMPHOCYTES % 21.4 % (18.0-39.1); MEAN CORPUSCULAR HEMOGLOBIN 28.3 pg (28-32); MEAN CORPUSCULAR HGB CONC 32.1 g/dL (31-35); MEAN CORPUSCULAR VOLUME 88.2 fL (81-99); MONOCYTES # (AUTO) 0.9 (0.2-0.8); MONOCYTES % 9.4 % (4.4-11.3); NEUTROPHILS # (AUTO) 6.3 (2.1-6.9); NEUTROPHILS % 63.1 % (38.7-80.0); PLATELET COUNT 226 x10e3/uL (140-360); RED BLOOD COUNT 5.09 x10e6/uL (4.3-5.7); RED CELL DISTRIBUTION WIDTH 15.7 % (11.7-14.4)
[2020-07-02 14:56] LABS: ANION GAP 13.6 mmol/L (8-16); CALCIUM 9.3 mg/dL (8.4-10.2); CREATININE, SERUM 1.22 mg/dL (0.72-1.25); POTASSIUM 4.6 mmol/L (3.5-5.1)
[~2020-07-05] MED LIST changes: +B&O 60MG R/S 60 MG SUPP PR ONE; +CEFTRIAXONE SOD 1 GM VIAL ONE; +EPHEDRINE SULFATE INJ 50 MG/ML VIAL ONE; +FENTANYL CITRATE/PF 100MCG/2 ML INJ ONE; +FLOMAX0.4 MG PO; +GENTAMICIN 80MG/NS 100 ML 200 ML IV ONE; +IOPAMIDOL 300MG/ML 50ML INFUS..BTL IV ONE; -IOPAMIDOL 370 MG/ML 200 ML INFUS..BTL INJ ONE; +JANUVIA100 MG PO; +JARDIANCE10 MG PO; +LIDOCAINE HCL 2% LOCAL INJ 5 ML SDV VIAL INJ ONE; +MIDAZOLAM HCL 2 MG/2 ML VIAL ONE; +ONDANSETRON HCL INJ 2MG/ML 2ML 2 MG/ML VIAL ONE; +PROPOFOL IV EMULSION 10 MG/ML 20 ML VIAL ONE; +SEVOFLURANE INHAL SOLN 250 ML PEN BTL ONE; -SODIUM CHLORIDE 0.9% 250ML 250 ML ONE; +SODIUM CHLORIDE 0.9% 50ML 50 ML ONE; +TOLTERODINE TART2 MG PO
[2020-07-05 13:25] VITALS: BP 99/58
== END | disposition home or self-care (01) ==
LOC: OR 09:06
PROVIDERS: ATTEND Urology
DX: N40.1 Benign prostatic hyperplasia with lower urinary tract symptoms (principal); N13.8 Other obstructive and reflux uropathy; N39.0 Urinary tract infection, site not specified; Z87.442 Personal history of urinary calculi; N32.89 Other specified disorders of bladder; G47.33 Obstructive sleep apnea (adult) (pediatric); I25.10 Atherosclerotic heart disease of native coronary artery without angina pectoris; I48.91 Unspecified atrial fibrillation; I45.10 Unspecified right bundle-branch block; I25.2 Old myocardial infarction; I10 Essential (primary) hypertension; E11.9 Type 2 diabetes mellitus without complications; M10.9 Gout, unspecified; F41.9 Anxiety disorder, unspecified; Z01.810 Encounter for preprocedural cardiovascular examination; Z01.812 Encounter for preprocedural laboratory examination; Z01.818 Encounter for other preprocedural examination; Z20.822 Contact with and (suspected) exposure to COVID-19; Z79.02 Long term (current) use of antithrombotics/antiplatelets; Z79.84 Long term (current) use of oral hypoglycemic drugs; Z98.61 Coronary angioplasty status
CPT/HCPCS: 52005; C9740; 36415; 71046; 74018; 74420; 80048; 82948; 84550; 85025; 93005; C1758; J0696; J1580; J2001; J2250; J2405; J3010; L8699; U0002

== ENCOUNTER → 2020-11-26 | Outpatient (CLI) | payer MEDICARE, OTHER ==
[~2020-11-26] MED LIST changes: -B&O 60MG R/S 60 MG SUPP PR ONE; -CEFTRIAXONE SOD 1 GM VIAL ONE; -EPHEDRINE SULFATE INJ 50 MG/ML VIAL ONE; -FENTANYL CITRATE/PF 100MCG/2 ML INJ ONE; -GENTAMICIN 80MG/NS 100 ML 200 ML IV ONE; -IOPAMIDOL 300MG/ML 50ML INFUS..BTL IV ONE; +IOPAMIDOL 370 MG/ML 200 ML INFUS..BTL INJ ONE; -LIDOCAINE HCL 2% LOCAL INJ 5 ML SDV VIAL INJ ONE; -MIDAZOLAM HCL 2 MG/2 ML VIAL ONE; -ONDANSETRON HCL INJ 2MG/ML 2ML 2 MG/ML VIAL ONE; -PROPOFOL IV EMULSION 10 MG/ML 20 ML VIAL ONE; -SEVOFLURANE INHAL SOLN 250 ML PEN BTL ONE; +SODIUM CHLORIDE 0.9% 250ML 250 ML ONE; -SODIUM CHLORIDE 0.9% 50ML 50 ML ONE
== END ==
LOC: CT 15:31
PROVIDERS: ATTEND Urology
DX: R31.0 Gross hematuria (principal)
CPT/HCPCS: 74178; J7050; Q9967

== ENCOUNTER → 2021-11-20 | Outpatient (CLI) | payer MEDICARE ==
[~2021-11-20] MED LIST changes: +IOPAMIDOL 370 MG/ML 100 ML INFUS..BTL INJ ONE; -IOPAMIDOL 370 MG/ML 200 ML INFUS..BTL INJ ONE
[2021-11-20 08:25] LABS: CREATININE, SERUM 1.52 mg/dL (0.72-1.25)
== END ==
LOC: CT 07:26
PROVIDERS: ATTEND Urology
DX: R31.0 Gross hematuria (principal)
CPT/HCPCS: 36415; 74178; 82565; 84520; J7050; Q9967

== ENCOUNTER → 2022-06-15 | Day surgery (SDC) | payer MEDICARE ==
[2022-06-08 10:43] LABS: BASOPHILS # (AUTO) 0.1 (0.0-0.1); BASOPHILS % 0.4 % (0.0-1.0); EOSINOPHILS # (AUTO) 0.4 (0.0-0.4); EOSINOPHILS % 2.6 % (0.0-6.0); HEMATOCRIT 44.5 % (38.2-49.6); HEMOGLOBIN 14.7 g/dL (14.0-18.0); LYMPHOCYTES # (AUTO) 2.5 (1.0-3.2); LYMPHOCYTES % 18.5 % (18.0-39.1); MEAN CORPUSCULAR HEMOGLOBIN 30.2 pg (28-32); MEAN CORPUSCULAR VOLUME 91.6 fL (81-99); MONOCYTES # (AUTO) 1.3 (0.2-0.8); MONOCYTES % 9.5 % (4.4-11.3); NEUTROPHILS # (AUTO) 9.3 (2.1-6.9); PLATELET COUNT 241 x10e3/uL (140-360); RED BLOOD COUNT 4.86 x10e6/uL (4.3-5.7); RED CELL DISTRIBUTION WIDTH 17.2 % (11.7-14.4)
[~2022-06-15] MED LIST changes: +FENTANYL CITRATE/PF 100MCG/2 ML INJ ONE; -IOPAMIDOL 370 MG/ML 100 ML INFUS..BTL INJ ONE; +LIDOCAINE HCL 2% LOCAL INJ 5 ML SDV VIAL INJ ONE; +PROPOFOL IV EMULSION 10 MG/ML 20 ML VIAL ONE; +PROPOFOL IV EMULSION 10 MG/ML 50 ML VIAL IV ONE; -SODIUM CHLORIDE 0.9% 250ML 250 ML ONE
[2022-06-15 12:00] VITALS: BP 140/84
== END | disposition home or self-care (01) ==
LOC: OR 07:59
PROVIDERS: ATTEND Internal Medicine Gastroenterology
DX: K20.90 Esophagitis, unspecified without bleeding (principal); D12.5 Benign neoplasm of sigmoid colon; K29.50 Unspecified chronic gastritis without bleeding; K31.89 Other diseases of stomach and duodenum; K26.9 Duodenal ulcer, unspecified as acute or chronic, without hemorrhage or perforation; K62.89 Other specified diseases of anus and rectum; K57.30 Diverticulosis of large intestine without perforation or abscess without bleeding; R19.5 Other fecal abnormalities; K21.9 Gastro-esophageal reflux disease without esophagitis; Z71.3 Dietary counseling and surveillance; G47.33 Obstructive sleep apnea (adult) (pediatric); E11.9 Type 2 diabetes mellitus without complications; I10 Essential (primary) hypertension; Z71.89 Other specified counseling; I25.2 Old myocardial infarction; E78.00 Pure hypercholesterolemia, unspecified; F41.9 Anxiety disorder, unspecified; Z01.810 Encounter for preprocedural cardiovascular examination; Z01.812 Encounter for preprocedural laboratory examination; Z79.84 Long term (current) use of oral hypoglycemic drugs; Z79.899 Other long term (current) drug therapy; Z68.41 Body mass index [BMI] 40.0-44.9, adult
CPT/HCPCS: 36415 ×2; 43239; 43450; 45380; 82948; 85025; 93005; C9113; J2001; J2704 ×2; J3010; 45385

== ENCOUNTER → 2022-07-08 | Outpatient (CLI) | payer MEDICARE ==
[~2022-07-08] MED LIST changes: -FENTANYL CITRATE/PF 100MCG/2 ML INJ ONE; -LIDOCAINE HCL 2% LOCAL INJ 5 ML SDV VIAL INJ ONE; -PROPOFOL IV EMULSION 10 MG/ML 20 ML VIAL ONE; -PROPOFOL IV EMULSION 10 MG/ML 50 ML VIAL IV ONE
== END ==
LOC: DX 09:24
PROVIDERS: ATTEND Nurse Practitioner
DX: K57.30 Diverticulosis of large intestine without perforation or abscess without bleeding (principal); Z86.010 Personal history of colon polyps
CPT/HCPCS: 74270

== ENCOUNTER → 2022-09-01 | Outpatient (CLI) | payer MEDICARE | LOC: RAD 12:23 | PROVIDERS: ATTEND Urology | DX: N20.0 Calculus of kidney (principal) | CPT/HCPCS: 74018 ==